=== PATIENT | male | born 1975 | race Caucasian/White ===

== ENCOUNTER 2025-11-12 20:19 | Emergency (ER) | payer OTHER ==
[2025-11-12] MEDS ORDERED: cefTRIAXone (ROCEPHIN) 1 GM VIAL ONE (20:56)
[2025-11-12] MEDS ORDERED: CEFAZOLIN 2 GM VIAL ONE (20:56)
[2025-11-12 21:02] LABS: #Basophils 0.2 thou/uL (0.0-0.2); #Eosinophils 0.4 thou/uL (0.0-0.7); #Lymphocytes 2.1 thou/uL (1.20-3.40); #Monocytes 1.0 thou/uL (0.11-0.59); #Neutrophils 7.4 thou/uL (1.40-6.50); %Basophils 1.6 % (0.0-1.0); %Eosinophils 3.7 % (0.0-10.0); %Lymphocytes 18.8 % (21.0-51.0); %Monocytes 9.4 % (0.0-10.0); %Neutrophils 66.5 % (42.0-75.0); Hematocrit 53.8 % (42.0-52.0); Hemoglobin 16.8 g/dL (14.0-18.0); Mean Corpuscular Hemoglobin 28.0 pg (27.0-31.0); Mean Corpuscular Volume 89.4 fl (78.0-98.0); Platelet Count 264 10x3/uL (130-400); Red Blood Cell (RBC) Count 6.02 mill/uL (4.70-6.10); White Blood Cell (WBC) Count 11.1 10x3/uL (4.8-10.8)
[2025-11-12 21:17] LABS: ALT (SGPT) 31 U/L (Less than 45); AST (SGOT) 28 U/L (11-34); Albumin 3.5 g/dL (3.1-4.5); Alkaline Phosphatase 79 U/L (40-110); Anion Gap 15 mmol/L (10-20); BUN (Urea Nitrogen) 32 mg/dL (8.4-25.7); Bilirubin, Total 0.5 mg/dL (0.3-1.2); Calc. Creatinine Clearance 0 mL/min (70-130); Calcium 8.6 mg/dL (7.8-10.44); Carbon Dioxide 21 mmol/L (22-29); Chloride 108 mmol/L (98-107); Globulin 3.3 g/dL (2.4-3.5); Glucose 131 mg/dL (70-105); Potassium 3.7 mmol/L (3.5-5.1); Sodium 140 mmol/L (136-145)
[2025-11-12] MEDS ORDERED: HYDROcodone/Acetaminophen 5/325 mg Tablet ONE (21:48)
== END 2025-11-12 22:55 | disposition short-term general hospital (02) ==
LOC: MADERS 20:19
DX: S67.195A Crushing injury of left ring finger, initial encounter (principal); S62.635B Displaced fracture of distal phalanx of left ring finger, initial encounter for open fracture; I10 Essential (primary) hypertension; Z89.022 Acquired absence of left finger(s); W23.0XXA Caught, crushed, jammed, or pinched between moving objects, initial encounter
CPT/HCPCS: 64450; 80053; 85025; 96365; 96367; J0665; J0696